=== PATIENT | female | born 1985 | race Caucasian/White ===

== ENCOUNTER 2018-02-15 18:18 | Emergency (ER) | payer OTHER ==
--- NOTE | 2018-02-15 18:34 | PDOC ---
Rapid Medical Evaluation Time Seen by Provider: 02/15/18 18:28 Medical Evaluation: Allergies Allergy/AdvReac Type Severity Reaction Status Date / Time No Known Allergies Allergy Verified 09/07/17 19:25 02/15/18 18:28 I have performed a brief in-person evaluation of this patient. The patient presents with a chief complaint of: denise had elbow surgery by Dr. Costa in [place], now pain, "felt something in my armpit/rest area, D-dimer 809 at urgent care, "maybe some SOB", no OCPs, flew back from [place] on 02/06 for surgery Pertinent physical exam findings: well appearing, lungs clear, tachy to 106 I have ordered the following: labs, urine The patient will proceed to the ED for further evaluation. Discharge Disposition - Diagnosis Pain of left side of body - Referrals - Patient Instructions - Post Discharge Activity
[2018-02-15 18:36] VITALS: BP 125/88; PULSE 106; TEMP 98.8; BMI 22.8
[2018-02-15 19:35] LABS: BASO % 0.8 % (0-2.0); EOS % 2.3 % (0-4.5); HEMATOCRIT 29.7 % (32.4-45.2); HEMOGLOBIN 10.4 GM/dL (10.7-15.3); LYMPH % 25.9 % (8-40); MCH 30.1 pg (25.7-33.7); MEAN PLT VOLUME 8.7 fl (7.5-11.1); MONO % 9.1 % (3.8-10.2); NEUT % 61.9 % (42.8-82.8); PLATELET COUNT 245 K/MM3 (134-434); RBC 3.45 M/mm3 (3.60-5.2); RDW 13.3 % (11.6-15.6); WHITE BLOOD COUNT 4.5 K/mm3 (4.0-10.0)
[2018-02-15 19:47] LABS: INR 1.1 (0.82-1.09); PROTHROMBIN TIME (PATIENT) 12.4 SEC (9.7-13.0)
[2018-02-15 20:16] LABS: ALBUMIN 3.5 g/dl (3.4-5.0); ALK PHOS 65 U/L (45-117); ANION GAP 3 (8-16); BILIRUBIN,TOTAL 0.3 mg/dL (0.2-1.0); BLOOD UREA NITROGEN 11 mg/dL (7-18); CALCIUM 8.8 mg/dL (8.5-10.1); CHLORIDE 103 mmol/L (98-107); CO2 32 mmol/L (21-32); CREATININE 0.6 mg/dL (0.55-1.02); GLUCOSE,RANDOM 117 mg/dL (74-106); POTASSIUM 3.8 mmol/L (3.5-5.1); SGOT/AST 16 U/L (15-37); SGPT/ALT 23 U/L (12-78); SODIUM 138 mmol/L (136-145); TOT PROT 7.1 g/dl (6.4-8.2)
--- NOTE | 2018-02-15 21:28 | PDOC ---
History of Present Illness - General History Source: Patient Exam Limitations: No Limitations - History of Present Illness Initial Comments: 02/15/18 21:28 32yo F with no medical history and recent surgery on her elbow who presents for lateral chest wall pain. Pt reports she recently had a fall in [place] in January which caused her to fracture her olecranon and ulna. Pt reports flying back to [place] from [place] and having recent surgery for her R elbow fracture. She states this morning she woke up and felt some medial chest wall pain which she describes as if she had a swollen lymph node. Pt then went to her urgent care which ran a D-dimer resulting in ~800. Pt then came here for further work-up. In triage labs were already sent with D-dimer resulting in 905 and unremarkable CBC, CMP, and b-HCG. Pt denies any fever/chills, lightheadedness, headache, shortness of breath, CP/ discomfort including with deep inspiration, abdominal pain, d/c/n/v <Erasto Lu - Last Filed: 02/15/18 23:26> <Cuca Collado - Last Filed: 02/16/18 00:51> - General Chief Complaint: Pain Stated Complaint: PAIN (PCP SENT) Time Seen by Provider: 02/15/18 18:28 Past History - Past Medical History COPD: No - Suicide/Smoking/Psychosocial Hx Smoking History: Never smoked Have you smoked in the past 12 months: No Information on smoking cessation initiated: No Substance Use Type: None <Erasto Lu - Last Filed: 02/15/18 23:26> <Cuca Collado - Last Filed: 02/16/18 00:51> - Past Medical History Allergies/Adverse Reactions: Allergies Allergy/AdvReac Type Severity Reaction Status Date / Time No Known Allergies Allergy Verified 02/15/18 18:29 Home Medications: Ambulatory Orders Ondansetron HCl [Zofran] 4 mg PO PRN 02/15/18 Oxycodone HCl/Acetaminophen [Oxycodone-Acetaminophen 5-325] 1 - 2 each PO PRN Review of Systems - Review of Systems Constitutional: No: Chills, Fever, Night Sweats, Weakness HEENTM: No: Eye Pain, Blurred Vision, Nose Congestion, Throat Pain Respiratory: No: Cough, Shortness of Breath, SOB with Exertion, Wheezing Cardiac (ROS): No: Edema, Lightheadedness, Palpitations, Syncope ABD/GI: No: Constipated, Diarrhea, Nausea, Vomiting, Abdominal cramping : No: Burning, Dysuria, Frequency, Flank Pain Musculoskeletal: No: Back Pain, Neck Pain Neurological: No: Headache, Numbness, Tingling Psychiatric: Yes: Anxiety. No: Depression Hematologic/Lymphatic: No: Blood Clots, Easy Bleeding, Easy Bruising <Erasto Lu - Last Filed: 02/15/18 23:26> *Physical Exam - Vital Signs Last Vital Signs Temp Pulse Resp BP Pulse Ox 98.8 F 106 H 18 125/88 100 02/15/18 18:29 02/15/18 18:29 02/15/18 18:29 02/15/18 18:29 02/15/18 18:29 <Erasto Lu - Last Filed: 02/15/18 23:26> - Vital Signs Last Vital Signs Temp Pulse Resp BP Pulse Ox 98.8 F 106 H 18 125/88 100 02/15/18 18:29 02/15/18 18:29 02/15/18 18:29 02/15/18 18:29 02/15/18 18:29 <Cuca Collado - Last Filed: 02/16/18 00:51> ED Treatment Course - LABORATORY CBC & Chemistry Diagram: 02/15/18 19:18 02/15/18 19:20 - ADDITIONAL ORDERS Additional order review: Laboratory Results 02/15/18 02/15/18 02/15/18 19:26 19:20 19:20 PT with INR 12.40 INR 1.10 D-Dimer 921 H Sodium 138 Potassium 3.8 Chloride 103 Carbon Dioxide 32 Anion Gap 3 L BUN 11 Creatinine 0.6 Creat Clearance w eGFR > 60 Random Glucose 117 H Calcium 8.8 Total Bilirubin 0.3 AST 16 ALT 23 Alkaline Phosphatase 65 Total Protein 7.1 Albumin 3.5 Urine HCG, Qual Negative 02/15/18 19:18 RBC 3.45 L MCV 86.0 MCHC 35.0 RDW 13.3 MPV 8.7 Neutrophils % 61.9 Lymphocytes % 25.9 Monocytes % 9.1 Eosinophils % 2.3 Basophils % 0.8 <Erasto Lu - Last Filed: 02/15/18 23:26> - LABORATORY CBC & Chemistry Diagram: 02/15/18 19:18 02/15/18 19:20 - ADDITIONAL ORDERS Additional order review: Laboratory Results 02/15/18 02/15/18 02/15/18 19:26 19:20 19:20 PT with INR 12.40 INR 1.10 D-Dimer 921 H Sodium 138 Potassium 3.8 Chloride 103 Carbon Dioxide 32 Anion Gap 3 L BUN 11 Creatinine 0.6 Creat Clearance w eGFR > 60 Random Glucose 117 H Calcium 8.8 Total Bilirubin 0.3 AST 16 ALT 23 Alkaline Phosphatase 65 Total Protein 7.1 Albumin 3.5 Urine HCG, Qual Negative 02/15/18 19:18 RBC 3.45 L MCV 86.0 MCHC 35.0 RDW 13.3 MPV 8.7 Neutrophils % 61.9 Lymphocytes % 25.9 Monocytes % 9.1 Eosinophils % 2.3 Basophils % 0.8 <Cuca Collado - Last Filed: 02/16/18 00:51> Medical Decision Making - Medical Decision Making 02/15/18 22:02 Wells Score 3 --CTA ordered for r/o pulmonary embolism --BHcg negative, CBC, CMP unremarkable at this point 02/15/18 23:26 Informed that patient is unable to put arm above head due to surgery; may be limited study, but benefits still outweigh for performance of the imaging study <Erasto Lu - Last Filed: 02/15/18 23:26> *DC/Admit/Observation/Transfer <Erasto Lu - Last Filed: 02/15/18 23:26> - Discharge Dispostion Admit: No <Cuca Collado - Last Filed: 02/16/18 00:51> Diagnosis at time of Disposition: Pain of left side of body - Discharge Dispostion Disposition: HOME Condition at time of disposition: Good - Referrals Referrals: Damon Ortiz MD [Primary Care Provider] - - Patient Instructions Printed Discharge Instructions: DI for Chest Pain Additional Instructions: Return to the ED for severe chest pain or shortness of breath, severe swelling of the arms or legs, other new or worsening symptoms. - Post Discharge Activity
--- NOTE | 2018-02-15 21:30 | PDOC ---
Attending Attestation - Resident Resident Name: AlyErasto - HPI HPI: 02/16/18 00:42 Pt presents to the ED complaining of L sided chest pain that is sharp and worse with movement. Patient points to a point on her left lateral chest wall and states that the pain feels like a "swollen lymph node", although she is unable to palpate a lymph node. Patient has a history
== END 2018-02-16 01:24 | disposition home or self-care (01) ==
LOC: JER 18:18
DX: R07.89 Other chest pain (principal); Z91.81 History of falling; Z98.890 Other specified postprocedural states
CPT/HCPCS: 36415; 71275-TC; 80053; 84703; 85025; 85379; 85610; 99283-25

== ENCOUNTER 2023-12-18 11:58 | Emergency (ER) | payer OTHER ==
[2023-12-18 12:25] VITALS: BP 119/68; PULSE 85; RESP 16; TEMP 100; BMI 26.5
[2023-12-18 13:51] LABS: BASO % 0.3 % (0-2.0); EOS % 0.8 % (0-4.5); HEMATOCRIT 40.1 % (32.4-45.2); HEMOGLOBIN 13.9 GM/dL (10.7-15.3); LYMPH % 12.6 % (8-40); MCH 30.9 pg (25.7-33.7); MCHC 34.6 g/dl (32.0-36.0); MEAN CELL VOLUME 89.4 fl (80-96); MEAN PLT VOLUME 8.1 fl (7.5-11.1); MONO % 5.1 % (3.8-10.2); NEUT % 81.2 % (42.8-82.8); PLATELET COUNT 262 10^3/uL (134-434); RBC 4.48 M/mm3 (3.60-5.2); RDW 14.5 % (11.6-15.6); WHITE BLOOD COUNT 9.3 K/mm3 (4.0-10.0)
[2023-12-18 13:57] LABS: INR 1.1 (0.83-1.09); PROTHROMBIN TIME (PATIENT) 12.8 SEC (9.7-13.0)
[2023-12-18 14:00] LABS: ACTIVATED PTT 33.9 SECONDS (25.2-36.5)
[2023-12-18 15:28] LABS: EPI CELLS 6 /uL (0-25.1); HYALINE CASTS 1 /uL (0-3.1); PH,URINE 6.5 (5.0-8.0); URINE APPEARANCE CLEAR; URINE BACTERIA 14 /uL (0-1359); URINE BILIRUBIN NEGATIVE (NEGATIVE); URINE COLOR YELLOW; URINE GLUCOSE (UA) NEGATIVE (NEGATIVE); URINE KETONE NEGATIVE (NEGATIVE); URINE LEUK ESTERASE 1+ (NEGATIVE); URINE NITRITE NEGATIVE (NEGATIVE); URINE PROTEIN NEGATIVE (NEGATIVE); URINE RBC 277 /uL (0-23.9); URINE UROBILINOGEN 0.2 mg/dL (0.2-1.0); URINE WBC 27 /uL (0-25.8)
== END 2023-12-18 17:32 | disposition home or self-care (01) ==
LOC: JER 11:58
DX: N93.9 Abnormal uterine and vaginal bleeding, unspecified (principal); R39.15 Urgency of urination
CPT/HCPCS: 36415; 76830-TC; 81003; 84702; 85025; 85610; 85730; 86850; 86900; 86901; 99283-25